=== PATIENT | female | born 2005 | race Hispanic/Latino ===

== ENCOUNTER 2024-04-29 06:00 | Inpatient (IN) | payer OTHER, SELFPAY ==
[2024-04-28 23:42] VITALS: BP 114/60
--- NOTE | 2024-04-28 23:58 | ED.GENMED ---
History of Present Illness
<EMERSON Kessler - Last Filed: 04/29/24 02:13>
General
Chief Complaint: Fever
Source: patient
Exam Limitations: none
Time Seen by Provider: 04/28/24 23:48
History of Present Illness
History of Present Illness:
This is a 19 year old female that comes in with c/o fever. States that last she had her right hip replaced at [facility]. Then yesterday she started with some pain in her hands but there was no swelling. States that they felt a little stiff.
Today her body aches and this continued to get worse. States that tonight at 9:45 she has been vomiting and that her stomach is burning. States that she has fever with chills and a headache. Patient took Tylenol at 9:30pm and her Oxycodone at 10pm
to sleep. States that she also took her Methotrexate and Hydrochloroquine. States that she has no hip pain. Denies any chest pain, SOB, cough, diarrhea, dizziness, urinary burning.
Past History
<EMERSON Kessler - Last Filed: 04/29/24 02:13>
Past History
ED Past Medical History: Hypercholesterolemia and Other (RA )
ED Past Surgical History: Orthopedic (Right total hip replacement) and Other (Eye surgery, )
Social History
Tobacco: Non-smoker
Alcohol: None
Drug: None
Personal: Single
Living: with family
Review of Systems
<EMERSON Kessler - Last Filed: 04/29/24 02:13>
Review of Systems
All Other Systems: ROS reviewed and negative except as documented in HPI and ROS
Constitutional: Reports fever and chills
EENT: Reports no symptoms
Respiratory: Reports no symptoms; Denies cough or trouble breathing
Cardiac: Reports no symptoms; Denies chest pain
ABD/GI: Reports abdominal pain (Burning), nausea and vomiting
: Reports no symptoms; Denies dysuria, frequency or urgency
Musculoskeletal: Reports no symptoms
Skin: Reports no symptoms
Neurological: Reports headache; Denies dizzy
Psychiatric: Reports no symptoms
Phy Exam
<EMERSON Kessler - Last Filed: 04/29/24 02:13>
General Physical Exam
General Presentation: no apparent distress
General age: appears stated age
General Skin: warm and dry
General Habitus: normal
General Mental: alert
General Hydration: appears well hydrated
ENT Exam
ENT Exam: TM's normal, pharynx normal and neck supple
Eye Exam
Eye Exam: EOMI
Cardiovascular Exam
Cardiovascular Exam: regular rate/rhythm, no edema and normal peripheral pulses
Pulmonary Exam
Pulmonary Exam: lungs clear, no respiratory distress, no rales, chest non tender, no crackles, no rhonchi, no wheezing and no cough
Gastrointestinal Exam
Gastrointestinal Exam: normal bowel sounds, non tender, soft, no organomegaly, no pulsatile mass and non distended
Musculoskeletal Exam
Musculoskeletal Exam: no edema and other (Surgical dressing maintained right hip. Dry and clean. )
Skin Exam
Skin Exam: normal color, warm/dry, no rash, no petechia and other (Negative for any redness around dressing or on incision line. Steri strips maintained. )
Psychiatric Exam
Psychiatric Exam: normal mood/affect
Course
<EMERSON Kessler - Last Filed: 04/29/24 02:13>
Orders/Labs/Results
Orders:
Orders
04/28/24 23:57
COVID-19 Antigen Stat
Source: Nasal Swab
Complete Blood Count/With Diff Urgent
Comprehensive Metabolic Panel Urgent
HCG, Serum Qualitative Screen Urgent
Lactic Acid Urgent
Influenza A+B Rapid Molecular Urgent
XOCHITL Source: Nasal Swab
Specimen Description:
Test Result ONCE
04/28/24 23:58
Urinalysis Reflex To Culture Urgent
Date Specimen was Collected: 04/29/24
Time Specimen was Collected: 00:54
Ibuprofen [Motrin] 600 mg PO NOW STA
04/29/24 00:00
Ondansetron Injectable [Zofran] 4 mg IV NOW STA
Pantoprazole [Protonix IV] 40 mg IV NOW STA
CR Chest - 2 Views Urgent
Reason For Exam: Fever
04/29/24 00:51
Diphenhydramine [Benadryl] 25 mg IV NOW STA
Prochlorperazine [Compazine] 5 mg IV NOW STA
04/29/24 01:01
0.9% Sodium Chloride 1000 ml [Nss] 1,000 ml IV BOLUS
04/29/24 01:24
0.9% Sodium Chloride 500 ml [Nss] 500 ml IV BOLUS
04/29/24 01:29
Blood Culture Urgent
XOCHITL Source: Blood/Venous
Specimen Description:
04/29/24 01:44
Cefepime HCl [Maxipime] 1,000 mg IV NOW STA
Vancomycin 1 Gram/200 ml [Vancocin] 1 gram in 200 ml IV NOW
04/29/24 01:52
Electrocardiogram (*1) Urgent
Reason for Study: Tachycardia
EKG- Treatment ONCE
04/29/24 04:00
Lactic Acid Urgent
Abnormal Lab Results
04/29/24 04/29/24
00:19 01:03
RBC 2.89 L 10^6/uL
(4.20-5.40)
Hgb 9.2 L g/dL
(12.0-16.0)
Hct 26.3 L %
(37.0-47.0)
MCH 31.8 H pg
(27.0-31.0)
Abs Immat Gran (auto) 0.1 H 10^3/uL
(0-0.05)
Absolute Neuts (auto) 9.0 H 10^3/uL
(1.4-6.5)
Absolute Lymphs (auto) 0.5 L 10^3/uL
(1.2-3.4)
Neutrophils % 90.7 H %
(42.2-75.2)
Lymphocytes % 5.4 L %
(20.5-51.1)
Potassium 3.4 L mmol/L
(3.5-5.1)
Chloride 108 H mmol/L
(98-107)
Carbon Dioxide 18 L mmol/L
(22-30)
Creatinine 0.4 L mg/dL
(0.6-1.0)
Glucose 123 H mg/dl
(70-99)
Lactic Acid 4.7 H* mmol/L
(0.7-2.0)
AST 40 H U/L
(14-36)
Total Protein 6.1 L g/dl
(6.3-8.2)
Urine Bilirubin 1+ A
(Negative)
Urine Urobilinogen 3+ A
(Neg - 1+)
04/29/24 00:19
04/29/24 00:19
H/H low. Carbon dioxide low. Glucose nonfasting. Lactic acid elevated at 4.7, AST slightly elevated. Total protein slightly low. Urine negative for infection. COVID and Influenza Negative. HCG negative.
Vital Signs
Initial and Last Documented VS:
Initial Vital Signs
Temp Pulse Resp BP Pulse Ox
103.3 F H 182 24 114/60 98
04/28/24 23:42 04/28/24 23:42 04/28/24 23:42 04/28/24 23:42 04/28/24 23:42
Last Documented Vital Signs
Temp Pulse Resp BP Pulse Ox
103.3 F H 145 30 92/38 96
04/28/24 23:42 04/29/24 01:30 04/29/24 01:30 04/29/24 01:30 04/29/24 01:30
<Yassine Rigoberto Brewer, DO - Last Filed: 04/29/24 02:16>
Orders/Labs/Results
Orders:
Orders
04/28/24 23:57
COVID-19 Antigen Stat
Source: Nasal Swab
Complete Blood Count/With Diff Urgent
Comprehensive Metabolic Panel Urgent
HCG, Serum Qualitative Screen Urgent
Lactic Acid Urgent
Influenza A+B Rapid Molecular Urgent
XOCHITL Source: Nasal Swab
Specimen Description:
Test Result ONCE
04/28/24 23:58
Urinalysis Reflex To Culture Urgent
Date Specimen was Collected: 04/29/24
Time Specimen was Collected: 00:54
Ibuprofen [Motrin] 600 mg PO NOW STA
04/29/24 00:00
Ondansetron Injectable [Zofran] 4 mg IV NOW STA
Pantoprazole [Protonix IV] 40 mg IV NOW STA
CR Chest - 2 Views Urgent
Reason For Exam: Fever
04/29/24 00:51
Diphenhydramine [Benadryl] 25 mg IV NOW STA
Prochlorperazine [Compazine] 5 mg IV NOW STA
04/29/24 01:01
0.9% Sodium Chloride 1000 ml [Nss] 1,000 ml IV BOLUS
04/29/24 01:24
0.9% Sodium Chloride 500 ml [Nss] 500 ml IV BOLUS
04/29/24 01:29
Blood Culture Urgent
XOCHITL Source: Blood/Venous
Specimen Description:
04/29/24 01:44
Cefepime HCl [Maxipime] 1,000 mg IV NOW STA
Vancomycin 1 Gram/200 ml [Vancocin] 1 gram in 200 ml IV NOW
04/29/24 01:52
Electrocardiogram (*1) Urgent
Reason for Study: Tachycardia
EKG- Treatment ONCE
04/29/24 04:00
Lactic Acid Urgent
Abnormal Lab Results
04/29/24 04/29/24
00:19 01:03
RBC 2.89 L 10^6/uL
(4.20-5.40)
Hgb 9.2 L g/dL
(12.0-16.0)
Hct 26.3 L %
(37.0-47.0)
MCH 31.8 H pg
(27.0-31.0)
Abs Immat Gran (auto) 0.1 H 10^3/uL
(0-0.05)
Absolute Neuts (auto) 9.0 H 10^3/uL
(1.4-6.5)
Absolute Lymphs (auto) 0.5 L 10^3/uL
(1.2-3.4)
Neutrophils % 90.7 H %
(42.2-75.2)
Lymphocytes % 5.4 L %
(20.5-51.1)
Potassium 3.4 L mmol/L
(3.5-5.1)
Chloride 108 H mmol/L
(98-107)
Carbon Dioxide 18 L mmol/L
(22-30)
Creatinine 0.4 L mg/dL
(0.6-1.0)
Glucose 123 H mg/dl
(70-99)
Lactic Acid 4.7 H* mmol/L
(0.7-2.0)
AST 40 H U/L
(14-36)
Total Protein 6.1 L g/dl
(6.3-8.2)
Urine Bilirubin 1+ A
(Negative)
Urine Urobilinogen 3+ A
(Neg - 1+)
04/29/24 00:19
04/29/24 00:19
Vital Signs
Initial and Last Documented VS:
Initial Vital Signs
Temp Pulse Resp BP Pulse Ox
103.3 F H 182 24 114/60 98
04/28/24 23:42 04/28/24 23:42 04/28/24 23:42 04/28/24 23:42 04/28/24 23:42
Last Documented Vital Signs
Temp Pulse Resp BP Pulse Ox
103.3 F H 145 30 92/38 96
04/28/24 23:42 04/29/24 01:30 04/29/24 01:30 04/29/24 01:30 04/29/24 01:30
<EMERSON Kessler - Last Filed: 04/29/24 02:13>
MDM/Problems Addressed
Differential Diagnosis Includes:
COVID, UTI, PNA
MDM/Problems Addressed:
This is a 19 year old female that comes in with c/o fever and vomiting. States that she started with her hands feeling stiff but there was no swelling. Then today she had body aches and this continued to get worse tonight. States that she has a
fever and was vomiting.
Will check labs. Urine, chest, and give Motrin for the fever. Will also give Zofran for the nausea.
Back into see patient. Patient remains Tachycardic but the nausea is better so taking Motrin at this time. Explained that her Lactic acid is elevated but she has a normal WBC count. Dr. Brewer into see patient. Will place call to speak with
Orthopedics at [facility].
Spoke with Dr. Guerrero at [facility]. This is the surgeon who did her right hip replacement. Explained that the patient came in with c/o vomiting and fever. Patient has a normal WBC count but her lactic acid is elevated at 4.7. Patient is negative for
COVID and Influenza. He does not feel that this is due to her hip replacement as incision line is clean and dry. Negative for any redness. Patient has no c/o pain in the hip. Will admit patient here for further evaluation and start IV antibiotics.
Will get blood cultures. This may be a viral illness. Hospitalist notified.
Chronic conditions affecting care:
RA
Acute Exacerbation and/or Progression of Chronic Illness:
NA
<EMERSON Kessler - Last Filed: 04/29/24 02:13>
*Radiology
Radiology exam reviewed: preliminary read by ED provider (Chest- Negative for active disease. )
*Pulse Oximetry
Patient hypoxic: no
*EKG
Interpreted by ED Provider?: Yes
Heart Rate: 139
Rate: tachycardiac
Rhythm: sinus
Axtell: normal axis
Interval: normal interval
QRS Pattern: normal QRS
Ischemia: no ischemia
*Tube Coverer Interpretation
Rate: Tube Coverer- N/A
*Critical Care Note
Total Time (30-74mins, 75-104mins- exclusive of procedures): Not Applicable
ED Attending Note
<EMERSON Kessler - Last Filed: 04/29/24 02:13>
-
Portions of this chart may have been created with voice recognition software.� Occasional wrong word or��sound alike� substitutions may have occurred due to the inherent limitations of voice recognition software.
<Yassine Brewer DO - Last Filed: 04/29/24 02:16>
ED Attending Note
Patient seen and examined by attending physician: Yes
I performed the substantive portion of visit, reviewed & personally made and approve the management plan that is documented in note by myself or SAVI.: Yes
I performed a history and physical exam of patient and discussed management with resident, I reviewed resident's note and agree with documented findings and plan of care.: Yes
ED Attending Note:
I evaluated the patient at bedside. I took some the dressing down and there is no evidence for surgical wound infection. There is no evidence for cellulitis. There is no palpable abscess. She reports no significant pain at the surgical site.
However, I am concerned of the elevated lack. She was given IV fluids as she was hypotensive and tachycardic upon arrival.
Discharge Plan
Departure
Patient Disposition: Admit
Date of Disposition: 04/29/24
Time of Disposition: 01:50
Admit to: Telemetry
Presentation/result/management discussed w/ accepting MD/DO: Hospitalist
Patient with high blood pressure during this ER visit?: No
Condition: Good
Covid-19: Negative COVID-19
Discharge Problem:
Nausea & vomiting, Fever, Tachycardia
Prescriptions:
No Action
prednisone 20 MG tablet
15 mg PO DAILY
Vitamin D
1 tab PO DAILY
indomethacin 25 MG capsule
25 mg PO TID
Injections/Infusions For Ra
ondansetron 4 MG tablet,disintegrating
4 mg PO TIDPRN PRN (Reason: nausea/vomiting) Qty: 20 0RF
Referrals:
Rigo Magaña MD [Family Provider] -
Interventions
Interventions:
*Risk Screen - Suicide Last Done: 04/28/24 23:42
*General Assessment Last Done: 04/29/24 00:08
*Neglect/Abuse Screening Last Done: 04/28/24 23:42
ED- Fall Risk Assessment Last Done: 04/29/24 00:49
*ED COVID-19 Vaccine History Last Done: 04/29/24 00:48
KI-Noglev-Ksbenudins Assessment Last Done: 04/29/24 00:49
ED- Neurological Assessment Last Done: 04/29/24 00:48
ED-Skin Assessment Last Done: 04/29/24 00:49
Discharge Date and Time
Print Language: OCCITAN
[2024-04-29] VITALS (61 sets, daily range): BP systolic 77–118; BP diastolic 33–80; PULSE 82–107; O2SAT 99–100; BMI 25.2; BMI 25.7
[2024-04-29] MEDS: ZOFRAN 4 MG IV ×2 (00:13→06:08)
[2024-04-29] MEDS: PROTONIX IV 40 MG IV ×2 (00:15→07:47)
[2024-04-29 00:35] LABS: % Basophils 0.1 % (0-2); % Eosinophils 0.5 % (0-6); % Immature Granulocytes 0.5 % (0-0.5); % Lymphocytes 5.4 % (20.5-51.1); % Monocytes 2.8 % (1.7-9.3); % Neutrophils 90.7 % (42.2-75.2); Absolute Eosinophils 0.1 10^3/uL (0-0.7); Absolute Immature Granulocytes 0.1 10^3/uL (0-0.05); Absolute Lymphocytes 0.5 10^3/uL (1.2-3.4); Absolute Monocytes 0.3 10^3/uL (0.1-0.6); Hematocrit 26.3 % (37.0-47.0); Hemoglobin 9.2 g/dL (12.0-16.0); Mean Corpuscular Hgb 31.8 pg (27.0-31.0); Mean Platelet Volume 9.6 fL (7.4-10.4); Nucleated Red Blood Cells % 0 %; Platelet Count 189 10^3/uL (130-400); Red Blood Cell Count 2.89 10^6/uL (4.20-5.40); Red Cell Dist. Width 13.1 % (11.5-14.5)
[2024-04-29 00:45] LABS: HCG, Serum Qualitative Screen Negative
[2024-04-29 00:48] LABS: AST (SGOT) 40 U/L (14-36); Albumin 3.9 g/dl (3.5-5.0); Alkaline Phosphatase 97 U/L (38-126); Blood Urea Nitrogen 16 mg/dl (7-17); Calcium 9.2 mg/dl (8.4-10.2); Carbon Dioxide 18 mmol/L (22-30); Chloride 108 mmol/L (98-107); Glucose 123 mg/dl (70-99); Potassium 3.4 mmol/L (3.5-5.1); Sodium 138 mmol/L (135-145); Total Bilirubin 0.7 mg/dl (0.2-1.3); Total Protein 6.1 g/dl (6.3-8.2); eGFR > 60.00
[2024-04-29] MEDS: COMPAZINE 5 MG IV (00:55)
[2024-04-29] MEDS: BENADRYL 25 MG IV (00:55)
[2024-04-29 00:56] LABS: COVID-19 Antigen Negative (Negative)
[2024-04-29 01:11] LABS: Lactic Acid 4.7 mmol/L (0.7-2.0)
[2024-04-29] MEDS: MOTRIN 600 MG PO (01:18)
[2024-04-29] MEDS: NSS 1000 IV ×3 (01:18→04:35)
[2024-04-29] MEDS: NSS 500 IV (01:30)
[2024-04-29 01:32] LABS: Urine Albumin Negative (Neg - Trace); Urine Bilirubin 1+ (Negative); Urine Character Clear (Clear); Urine Color Amber; Urine Glucose Negative (Negative); Urine Ketone Negative (Negative); Urine Leukocyte Negative (Negative); Urine Nitrite Negative (Negative); Urine Occult Blood Negative (Negative); Urine Urobilinogen 3+ (Neg - 1+)
[2024-04-29 01:59] LABS: ALT (SGPT) < 30 U/L (0-35)
[2024-04-29] MEDS: MAXIPIME 1000 MG IV (02:04)
[2024-04-29] MEDS: VANCOCIN 200 IV (02:05)
[2024-04-29] MEDS: TYLENOL 1000 MG PO (03:07)
[2024-04-29 03:30] LABS: Lactic Acid 1.3 mmol/L (0.7-2.0)
[2024-04-29] MEDS: LEVOPHED 250 IV (04:35)
[2024-04-29] MEDS: SOLU-CORTEF 50 MG IV ×3 (05:40→20:54)
--- NOTE | 2024-04-29 05:40 | HPS.HSE ---
Family Physician
-
Family Physician: Rigo Magaña
Chief Complaint
-
Fever, Abd Pain, N/V
History of Present Illness
Patient is a 19y F with PMH significant for rheumatoid arthritis who presents to ED complaining of fever, N/V and abdominal pain. Patient notes that she underwent R COOKIE at [place] on , April 24. She tolerated the procedure well and was
recovering very nicely until she noted pain and swelling in the hands last PM - typical of an RA flare for her. She woke up this AM with abdominal pain and nausea. Patient states that she started having emesis around 10 AM and it has persisted
throughout the day. Patient complains of fever at home to 104. She had diffuse aches and pains all over. She denies any other focal complaints such as sore throat, cough, diarrhea or urinary complaints.
Patient has no pain in the R hip at all. there has been no drainage or discharge from the surgery site. No surrounding redness or swelling.
Patient denies any known sick contacts.
Patient notes that she stopped all of her RA medications 1 week prior to her surgery. She has been advised to resume them 2 weeks post-op.
Patient did take her MTX dose today after discussing this with her Orthopedic team at [place].
Patient takes prednisone 5mg daily. She took her usual stress dosing (10mg BID) the day before, day of and day after surgery.
Medical History
Past Medical History
Past Medical History: Reports Other
Additional Past Medical History:
Juvenile Rheumatoid Arthritis
Dyslipidemia
Past Surgical History: Reports Other
Additional Past Surgical History:
Right COOKIE (04/24/24 @ [place])
Social History
Tobacco: Non-smoker
Alcohol: None
Drug: None
Family History
Family History: Not pertinent
Allergies / Home Medications
Allergies reflects when Allergies were last updated in [facility].
Home Medications with original date entered in [facility]
Allergy/Medication List:
Allergies
Allergy/AdvReac Type Severity Reaction Status Date / Time
No Known Allergies Allergy Verified 04/28/24 23:47
Home Medications
prednisone 20 mg tablet 5 mg PO DAILY 12/05/13
Vitamin D 1 tab PO DAILY 07/01/14
ondansetron 4 mg disintegrating tablet 4 mg PO TIDPRN PRN nausea/vomiting #20 tabs 10/03/19
hydroxychloroquine 100 mg tablet mg PO 04/29/24
methotrexate 2 mg/mL oral solution 0.8 mg PO QWEEK 04/29/24
sulfasalazine 500 mg tablet 1 g PO DAILY 04/29/24
tofacitinib 10 mg tablet (Xeljanz) 10 mg PO DAILY 04/29/24
Review of Systems
-
History Source: Patient
A 12 point ROS was completed and negative except as noted: Yes
Constitutional: Reports Fever, Fatigue and Chills
EENT: Denies Sore Throat
Respiratory: Denies Cough or Trouble Breathing
Cardiac: Denies Chest Pain or Palpitations
Abdomen/GI: Reports Abdominal Pain, Nausea and Vomiting; Denies Diarrhea, Constipated, Bloody Stools or Black Stools
: Denies Dysuria, Frequency or Flank Pain
Musculoskeletal: Reports Joint Pain, Joint Swelling and Edema
Skin: Denies Itching or Rash
Neurological: Denies Dizzy or Headache
Psych: Denies Depression or Anxiety
Physical Exam
Vital Signs
Vital Signs
Temp Pulse Resp BP Pulse Ox
99.9 F 123 23 105/54 97
04/29/24 04:53 04/29/24 05:30 04/29/24 05:30 04/29/24 05:30 04/29/24 05:30
Physical Exam
General: Other (19y F in no acute distress.)
HEENT: Moist mucous membranes and PERRLA
Respiratory: Clear; No Wheezes, Rales or Rhonchi
Cardiac: S1/S2, Tachycardia and Murmur (II/ PAUL)
GI: Soft, Non Tender, Non Distended and Normal Bowel Sounds
Musculoskeletal: No Clubbing, No Cyanosis and Other (Edema and tenderness of the digits of both hands. No erythema. R hip incision C/D/I. No surrounding erythema. No pain with ROM. No LE edema.)
Skin: No Rash
Neuro: AO x 3
Laboratory Results
-
04/29/24 00:19
04/29/24 00:19
Laboratory Results
Lactic Acid 1.3 mmol/L (0.7-2.0) 04/29/24 03:07
Total Bilirubin 0.7 mg/dl (0.2-1.3) 04/29/24 00:19
AST 40 U/L (14-36) H 04/29/24 00:19
ALT < 30 U/L (0-35) 04/29/24 00:19
Alkaline Phosphatase 97 U/L (38-126) 04/29/24 00:19
Impression/Plan
-
A/P: Patient is a 19y F with PMH significant for RA who is s/p R COOKIE at [place] on 04/24 and presented to ED complaining of fever, abdominal pain and N/V.
SIRS / Suspected Septic Shock
Lactic Acidosis
- Admit to ICU for further evaluation and treatment.
- Patient presents with fever, tachycardia and tachypnea. No evident source yet identified. ? viral process / gastroenteritis.
- UA, CXR, COVID and influenza all normal.
- Right hip surgical site looks to be healing extremely well without evidence of active infection.
- Check all culture data.
- Cover with empiric abx for now given immunosuppressed state.
- ID evaluation for additional recommendations.
- Supportive care including IVFs, antiemetics, etc.
Chronic Prednisone Use
Shock
- MAP < 65 in the ED despite sepsis fluid boluses.
- Levophed initiated in the ED.
- Given recent surgery, chronic prednisone use, acute illness, etc - would begin stress dose IV steroids with 1st dose now.
- Hydrocortisone 50mg IV q8 for now and taper back to patient's usual dose once clinically stable.
s/p R COOKIE
Post-Op Blood Loss Anemia
- Stable. Patient doing remarkably well in terms of R hip recovery.
- PT / OT evaluations while here.
- Hgb decreased likely secondary to recent surgery / blood loss.
- Follow for any changes.
Rheumatoid Arthritis with Acute Flare
- Patient with pain, swelling in the hands / fingers typical of her usual RA flare.
- Likely triggered by recent stress / surgery +/- acute infectious process.
- Continue to hold usual outpatient medications for now.
- IV steroids / PO steroids as noted above.
- Follow for clinical improvement and / or any worsening symptoms.
DVT Prophylaxis: Subcut Heparin
Code Status: Full
[2024-04-29] MEDS: LR 1000 IV ×2 (07:01→15:19)
--- NOTE | 2024-04-29 07:08 | PTCARENOTE ---
Received patient from ED nurse to room 3363 on a stretcher. The patient ambulated from the stretcher to the ICU bed. complains of mild dizziness. Pt's soft spoken, but oriented x3. Patient received on Levophed at 5 mcg/min. Patient settled and
cleansed with CHG wipes. Plan of care for the remainder of the shift reviewed with the patient. Pt oob to bedside commode. Voided 250 cc of yellow urine with some sediment. Right hip preadmission surgical site with dressing intact. No drainage
noted. LR initiated at 150 ml/hr. Pt's mother at the bedside. Call gomez is within reach.
[2024-04-29] MEDS: NSS (PRESERVATIVE FREE) 10 ML IV (07:47)
[2024-04-29] MEDS: HEPARIN 5000 UNITS SC (07:47)
[2024-04-29 08:19] LABS: APTT 36.1 Sec (23.4-35.0); INR 1.35; PT 16.5 Sec (11.4-14.6)
--- NOTE | 2024-04-29 08:39 | CON.INTV ---
Consultation
Consultation Request
Date/Time Consultation Requested: 04/29/2024629
Date/Time Consultation Performed: 04/29/2024834
Requesting Provider: Dr. Casanova
Performing Provider: Dr. Gabriel
Reason for Consultation: Hypotension on vasopressors
Medical History
-
Chief Complaint: Fever to 104 degrees with body aches, chills and nausea/vomiting
History of Present Illness:
19-year-old female non-smoker with a past medical history of rheumatoid arthritis on methotrexate, chronic prednisone at 5 mg daily + Xeljanz who presents with bodyaches, chills, nausea and vomiting. Patient had right hip replacement last
reportedly at [place], and took 10 mg BID of prednisone the day before surgery, the day of her surgery and the day after. This was done to prevent adrenal insufficiency. Surgery went well with no complications and she was in her usual state of health
prior to this current hospitalization. Yesterday she woke up with bodyaches, chills and then developed nausea and vomiting. In the ER she was febrile to 103.3 �F, tachycardic to 182 bpm, tachypneic to 24 breaths/min, BP 114/60 and saturating 90%
on room air. Labs showed normal WBC at 10, anemia to 9.2, platelet count 189, random cortisol level 44.2, urinalysis negative for UTI, and COVID antigen + flu A/B were all negative as well. CXR obtained showed no acute cardiopulmonary process.
She was started on antibiotics with cefepime/vancomycin, given IV fluids with 3.5L total of NS 0.9%, given hydrocortisone 50 mg IVP X1 and due to continued hypotension w/ SBP in 70-80s she was started on Levophed. Patient transferred to the ICU for
admission and critical care services consulted for additional management/recommendations.
Patient seen and evaluated this morning. Currently on Levophed at 4mcg/min with BP 95/53, HR 82, on room air with sats 98%. Patient is awake, alert and in no acute distress. The patient says that she feels better overall. She says that her hands
were painful in the ER and usually when she gets an RA flare she gets pain and swelling in her knuckles as well as her knees. She denies any knee pain currently. She currently denies any nausea but she did have some earlier this morning.
Currently denies chest pain, shortness of breath, fevers or chills. She did have a temperature overnight to 100.6 �F.
PMHx: Juvenile rheumatoid arthritis, dyslipidemia
PSHx: Right COOKIE (04/24/2024 @ [facility])
Past Medical History
Past Medical History: Other (Above as per HPI)
Past Surgical History: Other (Above as per HPI)
Social History
Tobacco: Non-smoker
Alcohol: None
Drug: None
Living: With Family
Family History
Family History: Reviewed & Not Pertinent
Allergies / Home Medications
Allergies
Allergy/AdvReac Type Severity Reaction Status Date / Time
No Known Allergies Allergy Verified 04/28/24 23:47
Home Medications
�Medication �Instructions �Recorded �Confirmed �Last Taken �Type
prednisone 20 mg tablet 5 mg PO DAILY 12/05/13 04/29/24 07/01/14 History
Vitamin D 1 tab PO DAILY 07/01/14 04/29/24 07/01/14 History
ondansetron 4 mg disintegrating 4 mg PO TIDPRN PRN nausea/vomiting 10/03/19 04/29/24 Unknown Rx
tablet #20 tabs
hydroxychloroquine 100 mg tablet mg PO 04/29/24 Unknown History
methotrexate 2 mg/mL oral solution 0.8 mg PO QWEEK 04/29/24 04/29/24 Unknown History
sulfasalazine 500 mg tablet 1 g PO DAILY 04/29/24 04/29/24 Unknown History
tofacitinib 10 mg tablet (Xeljanz) 10 mg PO DAILY 04/29/24 04/29/24 Unknown History
Review of Systems
-
History Source: Patient
All other systems: Negative unless noted (12 point ROS performed and is negative unless mentioned above.)
Vitals / Labs / Diagnostic Testing
Vital Signs
Temp Pulse Resp BP Pulse Ox
98.4 F 102 16 107/72 98
04/29/24 08:12 04/29/24 06:45 04/29/24 06:45 04/29/24 06:45 04/29/24 08:20
Lab Data
04/29/24 00:19
04/29/24 00:19
Laboratory Results
04/29/24
07:55
PT 16.5 H
INR 1.35
APTT 36.1 H
Microbiology
04/29/24 00:19 Nasal Swab Influenza Types A & B (CHRISTEN) - Final
Negative for Influenza A & B, NAAT
Negative results must be combined with clinical observations
and patient history.
Nucleic Acid Amplification test (NAAT)performed on the
[employer] platform.
Diagnostic Testing:
Physical Exam
-
HEENT: Normocephalic, Anicteric and Moist Mucous Membranes
Cardiovascular: S1/S2 and Peripheral Edema (Negative)
Respiratory: Wheeze (Negative), Rales (Negative), Rhonchi and Non-Labored Respirations
GI: Soft, Non Distended, Non Tender and Other (Hypoactive bowel sounds)
Neurology: AO x 3 and Tremors (Negative)
Skin: Warm and Dry
General: Respiratory Distress (Negative), Comfortable, Fever (Negative) and Chills (Negative)
Assessment
-
Assessment: 19-year-old female non-smoker with a past medical history of rheumatoid arthritis on methotrexate, chronic prednisone at 5 mg daily + Xeljanz who presents with bodyaches, chills, nausea and vomiting. Patient had right hip replacement
last reportedly at [place], and took 10 mg BID of prednisone the day before surgery, the day of her surgery and the day after. This was done to prevent adrenal insufficiency. Surgery went well with no complications and she was in her usual
state of health prior to this current hospitalization. Yesterday she woke up with bodyaches, chills and then developed nausea and vomiting. In the ER she was febrile to 103.3 �F, tachycardic to 182 bpm, tachypneic to 24 breaths/min, BP 114/60 and
saturating 90% on room air. Labs showed normal WBC at 10, anemia to 9.2, platelet count 189, random cortisol level 44.2, urinalysis negative for UTI, and COVID antigen + flu A/B were all negative as well. CXR obtained showed no acute
cardiopulmonary process. She was started on antibiotics with cefepime/vancomycin, given IV fluids with 3.5L total of NS 0.9%, given hydrocortisone 50 mg IVP X1 and due to continued hypotension w/ SBP in 70-80s she was started on Levophed. Patient
transferred to the ICU for admission and critical care services consulted for additional management/recommendations.
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
Impression:
#Circulatory shock requiring vasopressors - differential includes hypovolemia vs adrenal insufficiency versus sepsis (less likely sepsis given clear CXR and UA without signs of UTI; right hip surgical site appears non-infected)
#Nausea + vomiting
#Hypomagnesemia
#Tachycardia - resolved
#Febrile illness
#Lactic acidosis - resolved
#History of RA on Xeljanz, methotrexate q weekly and chronic prednisone 5 mg daily
#Recent right COOKIE last week @ [place]
#Iron deficiency anemia with iron saturation 11, iron level 26, TIBC: 225
#Personal history of COVID-19 (June 2020)
#History of recurrent E. coli UTI
Plan:
- Continue Levophed and wean as tolerated while maintaining MAP >65
- Monitor HR with goal 60-100
- Continue empiric antibiotics and if afebrile with negative cultures over the next 1-2 days then we will stop antibiotics at that time
- ID on board and recs appreciated
- Random cortisol: 44.2 (this was collected about 2 hours after receiving hydrocortisone)
- Continue IVF for today but stop later tonight to avoid volume overload
- Continue stress dose steroids with solu-cortef at 50mg IV q8hr and wean as tolerated
- Start iron supplementation with repeat iron studies as an outpatient
- Maintain SpO2 >90-94%
- Replete electrolytes with K>4, Mg>2
- Maintain euglycemia with goal BG 140-180
- prn nebulized bronchodilators
- Incentive spirometer encouraged
- DVT ppx
Advised patient upon discharge to follow-up with her furniture sprayer, Dr. Eileen Diez through [facility]
Critical care statement: A total of 40 minutes of critical care time was provided for this patient today. This includes management of unstable vital signs, evaluation of the patient at bedside, reviewing the patient's pertinent medical records
including radiographs, microbiology, laboratory evaluations, and discussion with primary team, consultants, pharmacy, nutrition, physical therapy, case management, charge nurse, critical care nursing, and respiratory therapy.
--- NOTE | 2024-04-29 08:39 | PHA.VAN.IN ---
Assessment
- Assessment
Renal Function: Appears similar to baseline
Maximum Temperature: 103.3F - ORAL - 04/28 23:42
Concomitant Antimicrobials: cefepime
AUC Dosing Plan
- Dosing Variables
Dosing Weight (kg): 52
Dosing CrCl (ml/min): 100
Vd coefficient (L/kg): 0.7
- Empiric Dosing
Initial / Loading Dose: Vanc 1000mg 04/29 02:05
Maintenance Regimen: Vanc 500mg Q8H starting at 2200 - give 750mg x1 at 1000
Estimated AUC (mcg*h/mL): 492
Estimated Peak (mcg*h/mL): 27.3
Estimated Trough (mcg/ml): 14.8
Estimated Half Life (H): 7.9
- Monitoring
No levels ordered at this time: consider levels in next few days
Pharmacokinetics Vancomycin I
- -
Patient Age: 19
Patient Sex: Female
Vancomycin Day #: 1
Indication: Other
Requesting Provider: Dr. Casanova
Pertinent Antimicrobial Allergies:
NKDA
Height / Weight:
Height 4 ft 8 in
Actual Weight 52 kg
Pertinent Past Medical History: R. COOKIE, RA (chronic prednisone)
- Vital Signs / Lab Results
Temp Pulse Resp BP Pulse Ox
98.4 F 102 16 107/72 98
04/29/24 08:12 04/29/24 06:45 04/29/24 06:45 04/29/24 06:45 04/29/24 08:20
Lab Results - Hematology
04/29/24
00:19
WBC 10.0
Lab Results - Chemistry
04/29/24
00:19
BUN 16
Creatinine 0.4 L
Albumin 3.9
04/29/24 04/29/24
00:19 03:07
Lactic Acid 4.7 H* 1.3
Lab Results - Urine
04/29/24
01:03
Urine Nitrite (Reflex) Negative
Leukocyte Esterase Rfl Negative
Microbiology Results
04/29/24 00:19 Influenza Types A & B (CHRISTEN) - Final
Nasal Swab Negative for Influenza A & B, NAAT
Negative results must be combined with clinical observations
and patient history.
Nucleic Acid Amplification test (NAAT)performed on the
[employer] platform.
[2024-04-29 09:09] LABS: Iron 26 ug/dl (37-170); Magnesium 1.4 mg/dl (1.6-2.3)
[2024-04-29 09:18] LABS: Percent Saturation 11 % (20-50); Total Iron Binding Capacity 225 ug/dl (265-497)
--- NOTE | 2024-04-29 10:17 | W.PN.HOSP.TC ---
Today's Communication/Plan
-
Critically ill
Continue ICU care including empiric antibiotics, IV fluids, vasopressor, pulse dose of IV steroids.
Total Critical Care Time__55___ minutes. I was immediately available to the patient and staff. I personally examined, reviewed labs, diagnostic images/reports, interpretations, treatment plans, discussed patient care with other providers and
family or caregivers (if patient is unable to make decisions), entered orders as appropriate and documented the medical record.
Assessment / Plan
Assessment / Plan
Impression:
Patient is a 19y F with PMH significant for RA who is s/p R COOKIE at [place] on 04/24 and presented to ED complaining of fever, abdominal pain and N/V.
SIRS with concern for septic shock versus acute adrenal crisis
Shock septic versus secondary to adrenal insufficiency. With hypotension not responding to IV fluids requiring IV pressors
Lactic acidosis
Hypokalemia
Hypomagnesemia
Remote urethritis with concern for acute flare
Conditions prior to admission:
Status post right COOKIE 04/24.
Rheumatoid arthritis
Chronic immunosuppressive state on corticosteroids, hydroxychloroquine, sulfasalazine, Xeljanz.
Plan:
SIRS septic versus acute adrenal insufficiency state.
Presentation with fever, tachycardia, tachypnea, abdominal pain and nausea
Urinalysis, chest x-ray, COVID, influenza all normal
Right hip surgical site looks to be healing extremely well without evidence of acute infection.
Blood cultures pending.
Initiated with empiric antibiotics vancomycin/cefepime pending cultures.
ID consultation
Concern for adrenal crisis in perioperative.
Shock with persistent hypotension requiring IV fluids and vasopressors.
Patient reports been taking pulse dose of steroids.
Random serum cortisol pending.
Initiated on pulse dose of corticosteroids/hydrocortisone 50 mg IV every 8 hours.
Continue isotonic solution/lactated Ringer.
Initiated on Levophed continue attempt to wean with goal of MAP 55-60.
Lactic acidosis.
Hypokalemia
Hypomagnesemia.
Check hemoglobin A1c (no prior history of diabetes, euglycemic upon presentation)
Continue IV fluids
Lactate level improved
Replete potassium and magnesium
Rheumatoid arthritis with concern for acute flare given the patient's hands pain and swelling upon presentation.
Initiated pulsed dose of corticosteroids.
Currently off methotrexate, Xeljanz, sulfasalazine, hydroxychloroquine with concern for sepsis.
Anticipated Discharge: > 48 hours
Subjective/Interval History
-
Date of Service: April 29, 2024
Objective Data
-
Labs:
Laboratory Results
04/29/24 04/29/24
00:19 07:55
WBC 10.0
Hgb 9.2 L
Hct 26.3 L
Plt Count 189
PT 16.5 H
INR 1.35
APTT 36.1 H
Sodium 138
Potassium 3.4 L
Chloride 108 H
Carbon Dioxide 18 L
BUN 16
Creatinine 0.4 L
Glucose 123 H
Calcium 9.2
Total Bilirubin 0.7
AST 40 H
ALT < 30
Alkaline Phosphatase 97
Vital Signs:
Vital Signs
Temp Pulse Resp BP Pulse Ox
98.4 F 102 16 107/72 98
04/29/24 08:12 04/29/24 06:45 04/29/24 06:45 04/29/24 06:45 04/29/24 08:20
I&O
04/28/24 04/29/24 04/30/24
06:59 06:59 06:59
Intake Total 671.4 / 671.4
Output Total 275 / 275
Balance 396.4 / 396.4
Physical Exam
-
General: Well Developed and No Apparent Distress
HEENT: Normocephalic, Atraumatic and Moist Mucous Membranes
Respiratory: Clear to Auscultation
Cardiac: Regular Rhythm and S1/S2; Negative Murmur, Rub or Gallop
GI: Soft, Nontender, Nondistended and Normal Bowel Sounds; Negative Organomegaly
Rectal: Deferred by Provider
Musculoskeletal: No Clubbing, No Cyanosis and No Edema
Skin: Negative Rash
Neuro: Nonfocal/Grossly Intact
--- NOTE | 2024-04-29 10:19 | CON.ID ---
Consultation
-
Date/Time Consultation Requested: April 29, 2024 0630
Date/Time Consultation Performed: April 29, 2024 1020
Requesting Provider: Dr. Doe Casanova
Performing Provider: Dr. Krista Crespo
Reason for Consultation: Fever/sepsis
Chief Complaint / Past History
Chief Complaint
N/V Fever
History of Present Illness
19-year-old female with history of juvenile rheumatoid arthritis on chronic prednisone 5 mg, MTX, tofacitinib who recently underwent right total hip replacement at [place] on April 24. The rheumatoid arthritis regimen were held 1 week prior to surgery
and she was to resume 1 week after surgery. However patient noted rheumatoid arthritis starting to flareup with pain and swelling and pain. She asked for orthopedic whether or not she can resume her rheumatoid arthritis meds. Ortho approved
starting methotrexate. Last night the patient had homemade chicken soup with spinach. She already started feeling unwell and went to bed early. She had some chills and fever up to 104. At 9:30 PM, she took her methotrexate. Soon after she
developed diffuse abdominal pain, nausea and vomiting. No diarrhea. She continued to have vomiting and therefore came to the ER at midnight last night. Temperature was 103.3. Blood pressure 77 systolic. Lactic acid 4.7. COVID-negative.
Influenza negative. Chest x-ray negative. UA negative. Patient was started on Levophed, vancomycin, cefepime. No rhinorrhea, sinus congestion, or sore throat. No cough or shortness of breath. No chest pain. Abdominal pain has resolved today.
No dysuria urinary urgency or flank pain. No rash. She reports history of fever when rheumatoid arthritis uncontrolled with flare. She feels like she does have RA flare at this time. She feels a bit better this morning. No ill contacts. She is
has stayed indoors since the hip surgery.
Past History
Additional Past Medical History:
Juvenile rheumatoid arthritis on methotrexate, tofacitinib, prednisone
Dyslipidemia
Right total hip replacement April 24, 2024 at [place]
Allergy History:
No Known Allergies Allergy (Verified 04/28/24 23:47)
Medications Reviewed: Yes
Current Antibiotics:
Vancomycin
Cefepime
Social History
Tobacco: Non-Smoker
Alcohol: None
Drug: None
Personal: Single
Living: With Family
Family History
Family History: Not Pertinent
Review of Systems
Review of Systems
General: Fever, Chills and Change in Appetite
HEENT: Negative Stiff Neck, Sinus Problems, Headache or Pharyngitis
Cardiovascular: Negative Chest Pain or Dyspnea
Respiratory: Negative Dyspnea or Cough
Gasteroenterology: Other (no diarrhea)
Genital / Urological: Negative Dysuria or Flank Pain
Endocrine: Negative Weakness
Skin / Hair / Nails: Negative Rash
Neurological: Negative Headache or Dizziness
All systems: All other systems were reviewed and were negative
Vital Signs
Temp Pulse Resp BP Pulse Ox
98.4 F 102 16 107/72 98
04/29/24 08:12 04/29/24 06:45 04/29/24 06:45 04/29/24 06:45 04/29/24 08:20
Selected Entries
04/28/24
23:42
Temp 103.3 F H
Physical Exam
Physical Exam
Constitutional: No Acute Distress and Comfortable
Eyes: No Conjunctival Hemorrhage and Sclera Anicteric
Oral: No Thrush
Cardiovascular: Regular Rate and S1/S2
Pulmonary: Clear
Gastrointestinal: Soft, Non Tender, Non Distended and Normal Bowel Sounds
Genito-Urinary: Negative CVA Tenderness
Extremities: Edema (bilateral hands/fingers 1+ edema)
Neurological: AO x 3
Lab / Diagnostic Study Results
04/29/24 00:19
04/29/24 00:19
Abs Immat Gran (auto) 0.1 10^3/uL (0-0.05) H 04/29/24 00:19
Absolute Neuts (auto) 9.0 10^3/uL (1.4-6.5) H 04/29/24 00:19
Absolute Lymphs (auto) 0.5 10^3/uL (1.2-3.4) L 04/29/24 00:19
Absolute Monos (auto) 0.3 10^3/uL (0.1-0.6) 04/29/24 00:19
Absolute Basos (auto) 0.0 10^3/uL (0-0.2) 04/29/24 00:19
Immature Gran % 0.5 % (0-0.5) 04/29/24 00:19
Neutrophils % 90.7 % (42.2-75.2) H 04/29/24 00:19
Lymphocytes % 5.4 % (20.5-51.1) L 04/29/24 00:19
Monocytes % 2.8 % (1.7-9.3) 04/29/24 00:19
Eosinophils % 0.5 % (0-6) 04/29/24 00:19
Basophils % 0.1 % (0-2) 04/29/24 00:19
PT 16.5 Sec (11.4-14.6) H 04/29/24 07:55
INR 1.35 04/29/24 07:55
Lactic Acid 1.3 mmol/L (0.7-2.0) 04/29/24 03:07
Microbiology Results
Micro:
04/29/24 01:29 Blood Culture - Pending
Blood/Venous
04/29/24 00:19 Influenza Types A & B (HCRISTEN) - Final
Nasal Swab Negative for Influenza A & B, NAAT
Negative results must be combined with clinical observations
and patient history.
Nucleic Acid Amplification test (NAAT)performed on the
[employer] platform.
04/29/24 CXR: No acute cardiopulmonary process.
Assessment / Plan
# SIRS- fever, tachycardia, hypotension
# JRA flare (off meds since 04/17 pre-op)
# s/p R COOKIE 04/24/24 at [facility]
- CXR neg. UA neg
-Blood cx pending
- Fever possibly due to TA flare
- N/V due to meds
- DC Vancomycin.
- If blood cx neg, dc cefepime.
- Follow temp, vitals.
[2024-04-29] MEDS: STERILE WATER FOR INJECTION 10 ML IV ×2 (10:50→17:51)
[2024-04-29] MEDS: MAXIPIME 2000 MG IV ×2 (10:50→17:51)
[2024-04-29] MEDS: MAGNESIUM SULFATE 50 IV (10:53)
[2024-04-29] MEDS: KCL 270 MEQ IV (10:53)
[2024-04-29 11:35] LABS: Cortisol, Random 44.2 ug/dl
[2024-04-29 11:45] LABS: Glucose - Point of Care 129 mg/dl (70-99)
--- NOTE | 2024-04-29 12:29 | CM ---
CM following re: discharge planning.
Reviewed pt's chart, met with pt and pt's mother at bedside.
Pt is a 19 year old female, admitted with primary dx of Sepsis.
Pt reports she lives with mother, stepfather and a brother in an apartment. 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
PCP: Rigo Magaña
pharmacy: [facility].
D/c plan; home with anticipate no needs. Mother to transport at discharge.
CM will follow with discharge plan updates as hospitalization progresses
--- NOTE | 2024-04-29 13:01 | PTCARENOTE ---
Levo gtt remains off since 1100; MAPs remain w in goal range. Pt. denies dizziness/lightheadedness. Also reports improved nausea from earlier. Tolerating clear liq diet/poor jadyn. Stand by assisted OOB x 1 into BR for hygiene care/void then into
chair. Tolerating chair position. Call gomez remains w in reach.
--- NOTE | 2024-04-29 13:03 | PTCARENOTE ---
Addendum entered by Ginna Zamora RN 04/29/24 13:13:
original note timed 04/29/24 @ 0800
Original Note:
Received pt @ change of shift. Drowsy, awakens to verbal stimuli, oriented x3; denies pain. SR on monitor. SpO2 98% on RA. +BS, abd soft/round/tender; reports intermittent nausea, no vomiting. Cont b/b. R hip aquacel c/d/i. LR infusing @
150mL/hr w levo gtt via #20 R AC- see MAR/flow sheet. #20 L FA patent, dressing c/d/i. Family @ bedside. Instructed on how to report care concerns and call gomez in reach.
[2024-04-29 13:57] LABS: Glycohemoglobin (HgbA1c) 4.3 % (4.0-5.6)
[2024-04-29 17:34] LABS: Glucose - Point of Care 110 mg/dl (70-99)
[2024-04-29] MEDS: LOVENOX 40 MG SC (17:51)
--- NOTE | 2024-04-29 18:23 | PTCARENOTE ---
pt. remains off levo gtt. K+ and Mag riders completed. IVF remains infusing. Tolerating clear liq diet; jadyn remains poor; int nausea @ x's. [place] VS negative. Ambulates around room x stand by assist. Tolerated chair position for approx 3H.
Assisted back to bed and call gomez remains w in reach.
[2024-04-29] MEDS: TYLENOL 650 MG PO (19:17)
--- NOTE | 2024-04-29 20:30 | PTCARENOTE ---
rec'd patient. assessment as documented. PRN tylenol given for mild WALL. oriented x3. SR on monitor. on RA, denies SOB. OOB with supervision to BR. call gomez within reach, mother at bedside, care ongoing.
[2024-04-29 22:02] LABS: Glucose - Point of Care 116 mg/dl (70-99)
[2024-04-30] VITALS (12 sets, daily range): BP systolic 90–118; BP diastolic 54–78; PULSE 72–111; BMI 25.5
[2024-04-30] MEDS: MAXIPIME 2000 MG IV ×2 (02:03→09:31)
[2024-04-30] MEDS: STERILE WATER FOR INJECTION 10 ML IV ×2 (02:03→09:31)
[2024-04-30] MEDS: SOLU-CORTEF 50 MG IV (04:56)
[2024-04-30 05:16] LABS: Hemoglobin 7.8 g/dL (12.0-16.0); Mean Corp Hgb Conc. 35.5 g/dL (33.0-37.0); Mean Corpuscular Volume 90.2 fL (81.0-99.0); Mean Platelet Volume 10.1 fL (7.4-10.4); Platelet Count 189 10^3/uL (130-400); Red Blood Cell Count 2.44 10^6/uL (4.20-5.40); Red Cell Dist. Width 13.2 % (11.5-14.5); White Blood Cell Count 17.2 10^3/uL (4.8-10.8)
--- NOTE | 2024-04-30 05:30 | PTCARENOTE ---
AM labs sent. pt denies SOB/pain at this time. offers no other complaints. IVF discontinued overnight. call gomez within reach, care ongoing.
[2024-04-30 05:45] LABS: ALT (SGPT) 16 U/L (0-35); AST (SGOT) 26 U/L (14-36); Albumin 2.9 g/dl (3.5-5.0); Alkaline Phosphatase 85 U/L (38-126); Blood Urea Nitrogen 7 mg/dl (7-17); Calcium 8.9 mg/dl (8.4-10.2); Carbon Dioxide 22 mmol/L (22-30); Chloride 110 mmol/L (98-107); Direct Bilirubin 0.1 mg/dl (0.0-0.4); Estimated Creatinine Clearance 99 ml/min; Glucose 90 mg/dl (70-99); Potassium 3.8 mmol/L (3.5-5.1); Sodium 136 mmol/L (135-145); Total Bilirubin 0.6 mg/dl (0.2-1.3); Total Protein 5.1 g/dl (6.3-8.2); eGFR > 60.00
[2024-04-30 06:52] LABS: Folate 8.3 ng/ml (2.76-20); Vitamin B12 808 pg/ml (239-931)
[2024-04-30 07:38] LABS: Glucose - Point of Care 90 mg/dl (70-99)
[2024-04-30] MEDS: PROTONIX IV 40 MG IV (08:22)
[2024-04-30] MEDS: NSS (PRESERVATIVE FREE) 10 ML IV (08:22)
[2024-04-30] MEDS: FEOSOL 325 MG PO (08:22)
[2024-04-30] MEDS: TYLENOL 650 MG PO ×3 (08:28→23:52)
--- NOTE | 2024-04-30 08:44 | W.PN.INTV ---
Today's Communication / Plan
Recommendations
Up OOB as tolerated
Antiemetics prn
Transition from stress dose steroids to her prednisone starting at 10 mg BID and then resume her 5mg daily dose after 5-7 days of 10mg BID dosing - defer to hospitalist
Outpatient follow-up with her car conditioner, Dr. Diez, at [facility]
Patient doing well, off pressors and is stable for downgrade out of ICU to telemetry. Knotter/Pulmonary service will now sign off. Please reconsult if there are any additional questions/concerns, or if patient's respiratory status deteriorates.
Assessment
-
Assessment: 19-year-old female non-smoker with a past medical history of rheumatoid arthritis on methotrexate, chronic prednisone at 5 mg daily + Xeljanz who presents with bodyaches, chills, nausea and vomiting. Patient had right hip replacement
last reportedly at [facility], and took 10 mg BID of prednisone the day before surgery, the day of her surgery and the day after. This was done to prevent adrenal insufficiency. Surgery went well with no complications and she was in her usual
state of health prior to this current hospitalization. Yesterday she woke up with bodyaches, chills and then developed nausea and vomiting. In the ER she was febrile to 103.3 �F, tachycardic to 182 bpm, tachypneic to 24 breaths/min, BP 114/60 and
saturating 90% on room air. Labs showed normal WBC at 10, anemia to 9.2, platelet count 189, random cortisol level 44.2, urinalysis negative for UTI, and COVID antigen + flu A/B were all negative as well. CXR obtained showed no acute
cardiopulmonary process. She was started on antibiotics with cefepime/vancomycin, given IV fluids with 3.5L total of NS 0.9%, given hydrocortisone 50 mg IVP X1 and due to continued hypotension w/ SBP in 70-80s she was started on Levophed. Patient
transferred to the ICU for admission and critical care services consulted for additional management/recommendations.
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
Impression:
#Circulatory shock requiring vasopressors - shock state resolved- differential includes hypovolemia vs adrenal insufficiency versus sepsis (less likely sepsis given clear CXR and UA without signs of UTI; right hip surgical site appears non-infected)
#Nausea + vomiting prior to arrival
#Hypomagnesemia - resolved
#Tachycardia - resolved
#Febrile illness - resolved
#Anemia - likely dilutional in setting of iron deficiency anemia with iron saturation 11, iron level 26, TIBC: 225
#Lactic acidosis - resolved
#History of RA on Xeljanz, methotrexate q weekly and chronic prednisone 5 mg daily
#Recent right COOKIE last week @ [facility]
#Personal history of COVID-19 (June 2020)
#History of recurrent E. coli UTI
Plan:
- Off vasopressors since yesterday AM; keep MAP >65
- Monitor HR with goal 60-100
- Consider stopping ABx given negative cultures and afebrile
- ID on board and recs appreciated - defer antibiotic management to ID
- Random cortisol: 44.2 (this was collected about 2 hours after receiving hydrocortisone)
- Off IVF now; tolerating PO diet
- Given low suspicion for adrenal insufficiency, change Solu-Cortef to prednisone 10mg BID x 5-7 days before resuming home dose of 5mg daily
- Continue iron supplementation with repeat iron studies as an outpatient
- Maintain SpO2 >90-94%
- Replete electrolytes with K>4, Mg>2
- Maintain euglycemia with goal BG 140-180
- prn nebulized bronchodilators
- Incentive spirometer encouraged
- DVT ppx
Advised patient upon discharge to follow-up with her car conditioner, Dr. Eileen Diez through [facility]
Patient doing well, off pressors and is stable for downgrade out of ICU to telemetry. Knotter/Pulmonary service will now sign off. Thank you for allowing us to be involved in the care of this patient. Please reconsult if there are any
additional questions/concerns, or if patient's respiratory status deteriorates.
Total time spent today was 55 minutes for this encounter. Time includes reviewing laboratory test/imaging results, reviewing pertinent medical records, obtaining and reviewing medical history, performing an appropriate exam, ordering medications,
tests and procedures. Time also includes documentation of this encounter, coordinating patient care and communicating with other healthcare professionals. Total time does not include separately billed tests performed on this date of service.
Subjective Dataa
Subjective Data
Date of Service:
Date of Service: April 30, 2024
Chief Complaint: Knotter Follow Up
Subjective:
Seen and evaluated this AM. HDN stable with BP this AM 109/71, HR 85 and SpO2 95% on RA. Off vasopressors since yesterday at 11AM. No acute events reported from overnight. She feels well, denying nausea, vomiting, joint pain or swelling. She
denies chest pain, shortness breath, abdominal pain, fevers or chills.
Review of Systems
General: Other (Negative unless mentioned above)
Objective Data
Data Reviewed
Vital Signs / I&O / Oxygen:
Vital Signs
Temp Pulse Resp BP Pulse Ox
98.4 F 79 15 102/70 98
04/30/24 07:53 04/30/24 08:30 04/30/24 08:30 04/30/24 08:30 04/30/24 08:31
Intake and Output
04/29/24 04/30/24 05/01/24
06:59 06:59 06:59
Intake Total 2588.9 / 2588.9
Output Total 3175 / 3175 300 / 300
Balance -586.1 / -586.1 -300 / -300
SaO2 98
Physical Exam
General: Respiratory Distress (negative), Comfortable, Chills (negative) and Sweats (negative)
HEENT: Normocephalic and Anicteric
Cardiovascular: S1-S2 and Peripheral Edema (negative)
Respiratory: Clear, Wheeze (negative), Crackles (negative), Rhonchi (negative) and Non-Labored Respirations
GI: Soft, Non Distended, Non Tender and Normal Bowel Sounds
Neurology: AO x 3 and Tremors (negative)
Skin: Warm, Dry and Jaundice (negative)
Labs/Micro/Reports
Lab Data
04/30/24 05:01
04/30/24 05:01
Microbiology
04/29/24 01:29 Blood/Venous Blood Culture - Preliminary
No Growth in 24 hours- Final report to follow
04/29/24 00:19 Nasal Swab Influenza Types A & B (CHRISTEN) - Final
Negative for Influenza A & B, NAAT
Negative results must be combined with clinical observations
and patient history.
Nucleic Acid Amplification test (NAAT)performed on the
[employer] platform.
--- NOTE | 2024-04-30 09:22 | PTCARENOTE ---
Received pt. @ change of shift. Assessment as charted-see flow sheet. Stand by assisted OOB into BR for hygiene and void. Assisted back to bed. Pt.'s mother remains @ bedside. Awaiting MD team for further plan of care. Tolerating
activity/diet; appetite remains poor; denies nausea/abd pain. Instructed on how to report care concerns and call gomez w in reach.
[2024-04-30] MEDS: PROTONIX PO (09:35)
[2024-04-30 12:06] LABS: Glucose - Point of Care 98 mg/dl (70-99)
--- NOTE | 2024-04-30 12:52 | W.PN.ID1 ---
Date of Service
Date of Service: April 30, 2024
Today's Communication
DC cefepime.
ID will sign off.
Assessment / Plan
# SIRS- fever, tachycardia, hypotension : all resolved
# Leukocytosis due to steroid
# JRA flare (off meds since 04/17 pre-op)
# s/p R COOKIE 04/24/24 at [facility]
- CXR neg. UA neg
-Blood cx neg
- Fever possibly due to RA flare
- DC cefepime.
ID will sign off.
Subjective / Review of Systems
Feels well today. No N/V/abd pain. RA flare better.
Vital Signs / Physical Exam
Vital Signs
Vital Signs
Temp Pulse Resp BP Pulse Ox
98.3 F 79 15 102/70 98
04/30/24 12:00 04/30/24 08:30 04/30/24 08:30 04/30/24 08:30 04/30/24 08:31
Physical Exam
Constitutional: No Acute Distress and Comfortable
Pulmonary: Clear
Gastrointestinal: Soft, Non Tender, Non Distended and Normal Bowel Sounds
Neurological: AO x 3
Objective Data
Lab Data
Lab Results
04/30/24 05:01
04/30/24 05:01
PT 16.5 Sec (11.4-14.6) H 04/29/24 07:55
INR 1.35 04/29/24 07:55
APTT 36.1 Sec (23.4-35.0) H 04/29/24 07:55
Estimated Creat Clear 99 ml/min 04/30/24 05:01
Lactic Acid 1.3 mmol/L (0.7-2.0) 04/29/24 03:07
Total Bilirubin 0.6 mg/dl (0.2-1.3) 04/30/24 05:01
AST 26 U/L (14-36) 04/30/24 05:01
ALT 16 U/L (0-35) 04/30/24 05:01
Alkaline Phosphatase 85 U/L (38-126) 04/30/24 05:01
Most recent labs reviewed.
Micro Results:
04/29/24 01:29 Blood Culture - Preliminary
Blood/Venous No Growth in 24 hours- Final report to follow
04/29/24 00:19 Influenza Types A & B (CHRISTEN) - Final
Nasal Swab Negative for Influenza A & B, NAAT
Negative results must be combined with clinical observations
and patient history.
Nucleic Acid Amplification test (NAAT)performed on the
[employer] platform.
04/29/24 CXR: No acute cardiopulmonary process.
--- NOTE | 2024-04-30 13:50 | CM ---
CM following re: discharge planning.
Reviewed pt's chart, met with pt and pt's mother at bedside. Pt is downgraded from ICU level of care, continue supportive care.
Pt lives with mother, stepfather and a brother in an apartment and independent in all areas [employer] STOCK.
D/c plan: home with anticipate no needs. Mother to transport at discharge.
CM will follow with discharge plan updates as hospitalization progresses
--- NOTE | 2024-04-30 15:06 | W.PN.HOSP.TC ---
Today's Communication/Plan
-
Transition to oral steroids.
Observe off antibiotics
Transfer out of ICU.
Advance diet.
Hold DMARDs while on pulse dose of systemic steroids and follows with rheumatology as outpatient.
Assessment / Plan
Assessment / Plan
Impression:
Patient is a 19y F with PMH significant for RA who is s/p R COOKIE at [place] on 04/24 and presented to ED complaining of fever, abdominal pain and N/V.
SIRS with concern for septic shock versus acute adrenal crisis
Shock septic versus secondary to adrenal insufficiency. With hypotension not responding to IV fluids requiring IV pressors
Lactic acidosis
Hypokalemia
Hypomagnesemia
Remote urethritis with concern for acute flare
Conditions prior to admission:
Status post right COOKIE 04/24.
Juvenile rheumatoid arthritis
Chronic immunosuppressive state on corticosteroids, hydroxychloroquine, sulfasalazine, Xeljanz.
Plan:
SIRS septic versus acute adrenal insufficiency state.
Sepsis ruled out
Presentation with fever, tachycardia, tachypnea, abdominal pain and nausea
Urinalysis, chest x-ray, COVID, influenza all normal
Right hip surgical site looks to be healing extremely well without evidence of acute infection.
Blood cultures negative to date
Infectious disease input appreciated
Empiric antibiotics discontinued on 04/30.
Concern for adrenal crisis in perioperative.
Shock with persistent hypotension requiring IV fluids and vasopressors.
Patient reports been taking pulse dose of steroids.
Random serum cortisol within normal limits (unclear was drawn while patient was already on hydrocortisone
Currently hemodynamically stable with resolved hypotension
Off IV fluids and vasopressors
Pulse dose of steroids/IV hydrocortisone will be transition to oral regimen add prednisone 10 mg twice daily
Monitor closely.
Lactic acidosis, resolved
Hypokalemia, improved
Hypomagnesemia., Improved
Check hemoglobin A1c (no prior history of diabetes, euglycemic upon presentation)
Continue IV fluids
Lactate level improved
Replete potassium and magnesium
Rheumatoid arthritis with concern for acute flare given the patient's hands pain and swelling upon presentation.
Initiated pulsed dose of corticosteroids.
Currently off methotrexate, Xeljanz, sulfasalazine, hydroxychloroquine with concern for sepsis.
Anticipated Discharge: 24 - 48 hours
Subjective/Interval History
-
Date of Service: April 30, 2024
Objective Data
-
Labs:
Laboratory Results
04/30/24
05:01
WBC 17.2 H
Hgb 7.8 L
Hct 22.0 L
Plt Count 189
Sodium 136
Potassium 3.8
Chloride 110 H
Carbon Dioxide 22
BUN 7
Creatinine 0.3 L
Glucose 90
Calcium 8.9
Total Bilirubin 0.6
AST 26
ALT 16
Alkaline Phosphatase 85
Vital Signs:
Vital Signs
Temp Pulse Resp BP Pulse Ox
98.5 F 79 15 102/70 98
04/30/24 15:01 04/30/24 08:30 04/30/24 08:30 04/30/24 08:30 04/30/24 08:31
I&O
04/29/24 04/30/24 05/01/24
06:59 06:59 06:59
Intake Total 2588.9 / 2588.9
Output Total 3175 / 3175 300 / 300
Balance -586.1 / -586.1 -300 / -300
Physical Exam
-
General: Well Developed and No Apparent Distress
HEENT: Normocephalic, Atraumatic and Moist Mucous Membranes
Respiratory: Clear to Auscultation
Cardiac: Regular Rhythm and S1/S2; Negative Murmur, Rub or Gallop
GI: Soft, Nontender, Nondistended and Normal Bowel Sounds; Negative Organomegaly
Rectal: Deferred by Provider
Musculoskeletal: No Clubbing, No Cyanosis and No Edema
Skin: Negative Rash
Neuro: Nonfocal/Grossly Intact
[2024-04-30] MEDS: LOVENOX 40 MG SC (17:42)
[2024-04-30 17:45] LABS: Glucose - Point of Care 102 mg/dl (70-99)
[2024-04-30] MEDS: ROXICODONE 5 MG PO (19:23)
[2024-04-30] MEDS: DELTASONE 10 MG PO (19:24)
--- NOTE | 2024-04-30 20:46 | PTCARENOTE ---
rec'd patient, assessment as documented. PRN pain meds given for generalized body aches. SR on monitor, on RA. OOB to BR with supervision. call gomez within reach, care ongoing.
[2024-04-30 22:04] LABS: Glucose - Point of Care 104 mg/dl (70-99)
[2024-05-01 04:31] VITALS: BP 108/65
[2024-05-01 04:56] LABS: % Basophils 0.2 % (0-2); % Eosinophils 0.2 % (0-6); % Immature Granulocytes 0.7 % (0-0.5); % Lymphocytes 5.9 % (20.5-51.1); % Monocytes 3.3 % (1.7-9.3); % Neutrophils 89.7 % (42.2-75.2); Absolute Immature Granulocytes 0.1 10^3/uL (0-0.05); Absolute Lymphocytes 0.8 10^3/uL (1.2-3.4); Absolute Monocytes 0.4 10^3/uL (0.1-0.6); Absolute Neutrophils 11.8 10^3/uL (1.4-6.5); Hematocrit 23.4 % (37.0-47.0); Hemoglobin 8.1 g/dL (12.0-16.0); Mean Corp Hgb Conc. 34.6 g/dL (33.0-37.0); Mean Corpuscular Hgb 31.9 pg (27.0-31.0); Mean Corpuscular Volume 92.1 fL (81.0-99.0); Mean Platelet Volume 10.1 fL (7.4-10.4); Nucleated Red Blood Cells % 0 %; Platelet Count 198 10^3/uL (130-400); Red Blood Cell Count 2.54 10^6/uL (4.20-5.40); Red Cell Dist. Width 13.2 % (11.5-14.5); White Blood Cell Count 13.2 10^3/uL (4.8-10.8)
[2024-05-01 06:00] VITALS: BMI 25.7
[2024-05-01 06:03] LABS: Blood Urea Nitrogen 13 mg/dl (7-17); Carbon Dioxide 23 mmol/L (22-30); Estimated Creatinine Clearance 100 ml/min; Potassium 3.9 mmol/L (3.5-5.1); eGFR > 60.00
[2024-05-01 06:12] LABS: Calcium 8.9 mg/dl (8.4-10.2); Chloride 107 mmol/L (98-107); Glucose 105 mg/dl (70-99); Sodium 137 mmol/L (135-145)
[2024-05-01] MEDS: NSS (PRESERVATIVE FREE) IV (07:50)
[2024-05-01] MEDS: PROTONIX 20 MG PO (07:51)
[2024-05-01] MEDS: DELTASONE 10 MG PO (07:51)
[2024-05-01 08:06] LABS: Glucose - Point of Care 102 mg/dl (70-99)
--- NOTE | 2024-05-01 08:10 | PTCARENOTE ---
Patient resting in bed this am flat affect. Reports no discomfort at this time. Mother present in room. Patient reports feeling very tired. Morning meds administered. Patient encouraged to call morning breakfast in. Patient reports shes going to try
to sleep at this time and will call later.
--- NOTE | 2024-05-01 11:36 | W.DS.TRANS ---
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
-
Discharge Instructions:
Discharge Diagnosis/Procedures SIRS, Adrenal crisis
Diet Regular
Instructions:
Stand-Alone Forms:
Changes to Home Medications: Yes
Discharge Medications:
DC Medications w/original date entered in [employer]
Vitamin D 1 tab PO DAILY Supplement 07/01/14
ondansetron 4 mg disintegrating tablet 4 mg PO TIDPRN PRN nausea/vomiting #20 tabs 10/03/19
hydroxychloroquine 100 mg tablet mg PO 04/29/24
methotrexate 2 mg/mL oral solution 0.8 mg PO QWEEK RA 04/29/24
sulfasalazine 500 mg tablet 1 g PO DAILY RA 04/29/24
tofacitinib 10 mg tablet (Xeljanz) 10 mg PO DAILY RA 04/29/24
prednisone 5 mg tablet 10 mg (2 x 5 mg) PO BID #60 tabs 05/01/24
Home Medication Changes
Continue stress dose of steroids until followed by rheumatology
Pending Results: No
--- NOTE | 2024-05-01 11:55 | CM ---
Patient for discharge home today. Per chart notes and nursing no discharge needs at this time.
Plan; home with no needs anticipated.
--- NOTE | 2024-05-01 12:00 | PN.CDI ---
CDI
- -
CDI:
Physician Documentation Request
Admit Date: 04/29/24 06:00
Dear Doctor Rosa,
Patient admitted for evaluation of SIRS. Sepsis has been ruled out.
H&P includes a diagnosis of Post op blood loss anemia.
Could you please further specify the acuity of the blood loss anemia:
____ Acute
____ Chronic
____ Other
Use of terms such as suspected, likely, concern for, or probable (associated with a specific diagnosis that is being evaluated, monitored, or treated as if it exists) are acceptable and can be coded in the inpatient setting, when documented at the
time of discharge.
Thank you,
Mary Matthews RN, BSN
CDI Specialist
tiger text
Please use your independent medical judgment in providing your response.
--- NOTE | 2024-05-01 12:06 | PN.CDI ---
CDI
- -
CDI:
Physician Documentation Request
Admit Date: 04/29/24 06:00
Dear Doctor Rosa,
Patient came to ED complaining of fever, pain in her hands, stiffness of hands and body aches, vomiting.
Patient's The rheumatoid arthritis regimen were held 1 week prior to surgery and she was to resume 1 week after surgery.
Progress notes state 'SIRS with concern for septic shock versus acute adrenal crisis. Shock septic versus secondary to adrenal insufficiency.'
Please clarify the adrenal state:
Insufficiency
Crisis
Other
Use of terms such as suspected, likely, concern for, or probable (associated with a specific diagnosis that is being evaluated, monitored, or treated as if it exists) are acceptable and can be coded in the inpatient setting, when documented at the
time of discharge.
Thank you,
Mary Matthews RN, BSN
CDI Specialist
tiger text
Please use your independent medical judgment in providing your response.
[2024-05-01 12:11] VITALS: BP 110/68
--- NOTE | 2024-05-01 12:19 | PN.CDI ---
CDI
- -
CDI:
Physician Documentation Request
Admit Date: 04/29/24 06:00
Dear Doctor Rosa,
Patient came to ED complaining of fever, pain in her hands, stiffness of hands and body aches, vomiting.
Patient's rheumatoid arthritis regimen were held 1 week prior to surgery (hip) and she was to resume 1 week after surgery.
Progress notes state 'SIRS with concern for septic shock versus acute adrenal crisis. Shock septic versus secondary to adrenal insufficiency.'
Please clarify the adrenal state:
Insufficiency
Crisis
Other
Use of terms such as suspected, likely, concern for, or probable (associated with a specific diagnosis that is being evaluated, monitored, or treated as if it exists) are acceptable and can be coded in the inpatient setting, when documented at the
time of discharge.
Thank you,
Mary Matthews RN, BSN
CDI Specialist
tiger text
Please use your independent medical judgment in providing your response.
--- NOTE | 2024-05-01 12:20 | PN.CDI ---
CDI
- -
CDI:
Physician Documentation Request
Admit Date: 04/29/24 06:00
Dear Doctor Rosa,
SIRS with concern for septic shock versus acute adrenal crisis
04/30 hospitalist progress note states 'sepsis ruled out....Shock with persistent hypotension requiring IV fluids and vasopressors.'
Please clarify the type of shock:
Cardiogenic shock
Hypovolemic shock - indicate if due to surgery, trauma or other etiology
Shock, unknown type
Other
Use of terms such as suspected, likely, concern for, or probable (associated with a specific diagnosis that is being evaluated, monitored, or treated as if it exists) are acceptable and can be coded in the inpatient setting, when documented at the
time of discharge.
Thank you,
Mary Matthews RN, BSN
CDI Specialist
tiger text
Please use your independent medical judgment in providing your response.
== END 2024-05-01 12:16 | disposition home or self-care (01) | DRG 644 ==
LOC: ICU 06:00
PROVIDERS: Clinical Nurse Specialist Family Health; ADMITTING PHYSICIAN Hospitalist; ATTENDING PHYSICIAN Internal Medicine; CONSULT PHYSICIAN Internal Medicine Critical Care Medicine; EMERGENCY PHYSICIAN Emergency Medicine; FAMILY PHYSICIAN Pediatrics; OTHER PHYSICIAN Internal Medicine Infectious Disease
DX: E27.2 Addisonian crisis (principal); D62 Acute posthemorrhagic anemia; E87.20 Acidosis, unspecified; D84.821 Immunodeficiency due to drugs; R57.9 Shock, unspecified; R56.9 Unspecified convulsions; I10 Essential (primary) hypertension; M08.00 Unspecified juvenile rheumatoid arthritis of unspecified site; D50.9 Iron deficiency anemia, unspecified; E78.00 Pure hypercholesterolemia, unspecified; E83.42 Hypomagnesemia; E87.6 Hypokalemia; K52.9 Noninfective gastroenteritis and colitis, unspecified; E27.40 Unspecified adrenocortical insufficiency; R06.82 Tachypnea, not elsewhere classified; Z96.641 Presence of right artificial hip joint; Z79.52 Long term (current) use of systemic steroids; Z79.631 Long term (current) use of antimetabolite agent; Z86.16 Personal history of COVID-19; Z86.19 Personal history of other infectious and parasitic diseases; Z87.440 Personal history of urinary (tract) infections; Z11.52 Encounter for screening for COVID-19
CPT/HCPCS: 71046; 80048; 80053; 81003; 82248; 82533; 82607; 82746; 82962; 83036; 83540; 83550; 83605; 83735; 84703; 85025; 85027; 85610; 85730; 87040; 87502; 87811; 93005; 96365; 96375; 97163; 97166; 99285